=== PATIENT | female | born 1995 | race Caucasian/White ===

== ENCOUNTER → 2016-07-16 | Outpatient (REF) ==
[~2016-07-16] MED LIST: AMOXICILLIN 50500 MG PO
== END ==
LOC: WSOH 09:31 → WSPT 10:45
DX: Z02.1 Encounter for pre-employment examination (principal)

== ENCOUNTER → 2016-07-26 | Outpatient (REF) | LOC: WSOH 11:00 | DX: Z11.1 Encounter for screening for respiratory tuberculosis (principal) ==